=== PATIENT | male | born 1955 | race Caucasian/White ===

== ENCOUNTER → 2020-06-12 | Outpatient (CLI) | payer BC, MEDICARE | END | disposition home or self-care (01) | LOC: LABWHC1 11:13 | PROVIDERS: ATTEND Surgery | DX: Z20.828 Contact with and (suspected) exposure to other viral communicable diseases (principal) ==

== ENCOUNTER → 2020-06-20 | Day surgery (SDC) | payer BC, MEDICARE ==
[2020-06-17 08:36] VITALS: BMI 30.4
[~2020-06-20] MED LIST: LACTATED RINGERS 1,000 ML IV SCH; LIDOCAINE 1% (10MG/ML) FOR IV START INTRADERMA ONE; LIDOCAINE 1% INJ 10MG/ML (20 ML MDV) ONE; PROPOFOL 10 MG/ML 20 ML VIAL IV ONE
[2020-06-20 09:43] VITALS: RESP 16; TEMP 98.2
--- NOTE | 2020-06-20 10:36 | P.PCN ---
Date of Procedure: 06/20/20 Preoperative Diagnosis: GERD Screening Postoperative Diagnosis: Gastritis Duodenitis Diverticulosis Procedure(s) Performed: EGD with biopsy Colonoscopy Surgeon: Lenore Walden Pathology: other (Biopsies of duodenum, antrum, esophagus) Condition: stable Disposition: same day Indications for Procedure: 64-year-old male presents today for upper and lower endoscopy. He does have a chronic history of GERD and has never had an upper endoscopy. He does treat this with Nexium and states he does have some success with the medication. He states his last colonoscopy was many years ago and he is due for screening colonoscopy. He denies any recent blood in his stool or any family history of colon cancer. Risks, benefits and alternatives were provided to the patient. He did provide consent prior to attending the endoscopy suite. Operative Findings: Gastritis Duodenitis Diverticulosis Description of Procedure: The patient was brought to the endoscopy suite. He was then placed in left lateral decubitus position and adequate sedation was achieved using conscious sedation. A bite block was placed and an endoscope was placed in the oropharynx and advanced under endoscopic visualization. The scope was advanced through the esophagus into the stomach, through the gastric antrum and into the pylorus. The third portion of the duodenum was visualized. The endoscope was then slowly withdrawn. The first portion of duodenum was noted to have inflammatory changes. Biopsies were taken. The antrum was noted to have mild inflammatory changes. Biopsies were taken. The gastric body distended normally and the gastric folds appeared normal and flattened with insufflation. A retroflexed view of the fundus and GE junction revealed no significant hiatal hernia. Esophagus appeared endoscopically normal. Biopsies were taken. Excess air was removed as was withdrawn. A digital rectal exam was armed and mild internal hemorrhoids were palpated. An endoscope was then placed in the rectum and advanced to the cecum as identified by landmarks including the appendiceal orifice and the ileocecal valve. The prep was fair. The colonoscope was then slowly withdrawn, examining for any mucosal abnormalities. The cecum, ascending, transverse, descending and sigmoid colon were visualized adequately. No large masses were noted. No obvious polyps were noted. Moderate Diverticulosis was noted scattered throughout the sigmoid colon. Retroflexion was performed in the rectum and mild internal hemorrhoids were visible. Excess air was removed, the colonoscope withdrawn and the procedure terminated. The patient was then transferred to the recovery unit in stable condition. Next colonoscopy should be performed in 7-10 years.
--- NOTE | 2020-06-20 10:38 | P.GSHP ---
History of Present Illness H&P Date: 06/20/20 64-year-old male presents for upper and lower endoscopy. He does have a chronic history of GERD. He takes Nexium for this and he states that he does have success. He is last colonoscopy was many years ago. He denies any recent blood in his stool. Denies any family history of colon cancer. Denies any recent abdominal pain. - Review of Systems All systems: negative Past Medical History Past Medical History: GERD/Reflux, Hearing Disorder / Deafness Additional Past Medical History / Comment(s): LT KNEE PROB. History of Any Multi-Drug Resistant Organisms: None Reported Past Surgical History: Hernia Repair, Joint Replacement, Orthopedic Surgery Additional Past Surgical History / Comment(s): LT RING FINGER REPAIR, SKIN GRAFT. LT CTR., reji knee replacement Past Anesthesia/Blood Transfusion Reactions: No Reported Reaction Smoking Status: Current some day smoker - Past Family History Father Family Medical History: Cancer Medications and Allergies Home Medications Medication Instructions Recorded Confirmed Type Atomoxetine HCl [Strattera] 100 mg PO QAM 05/20/15 06/20/20 History Esomeprazole Magnesium [NexIUM] 40 mg PO DAILY 05/20/15 06/20/20 History Atorvastatin [Lipitor] 10 mg PO DAILY 06/17/20 06/20/20 History Multivitamins, Thera [Multivitamin 1 tab PO DAILY 06/17/20 06/20/20 History (formulary)] Allergies Allergy/AdvReac Type Severity Reaction Status Date / Time No Known Allergies Allergy Verified 06/20/20 09:19 Surgical - Exam Osteopathic Statement: *. No significant issues noted on an osteopathic structural exam other than those noted in the History and Physical/Consult. Vital Signs Temp Pulse Resp BP Pulse Ox 98.2 F 65 16 144/84 96 06/20/20 09:19 06/20/20 09:19 06/20/20 09:19 06/20/20 09:19 06/20/20 09:19 - General well nourished, no distress - ENT no hearing loss - Respiratory normal respiratory effort - Abdomen Abdomen: soft, non tender Assessment and Plan Plan: 64-year-old male with history of GERD presents for upper and lower endoscopy. Risks, benefits and alternatives were provided to the patient. He did provide consent prior to attending the endoscopy suite. Further recommendations after procedure.
[2020-06-20 10:56] VITALS: BP 166/93; PULSE 64
== END | disposition home or self-care (01) ==
LOC: ORWHC2ENDO 09:06
PROVIDERS: ATTEND Surgery
DX: Z12.11 Encounter for screening for malignant neoplasm of colon (principal); K29.80 Duodenitis without bleeding; K21.9 Gastro-esophageal reflux disease without esophagitis; K21.00 Gastro-esophageal reflux disease with esophagitis, without bleeding; K29.70 Gastritis, unspecified, without bleeding; K64.8 Other hemorrhoids; K57.30 Diverticulosis of large intestine without perforation or abscess without bleeding; H91.90 Unspecified hearing loss, unspecified ear; Z96.653 Presence of artificial knee joint, bilateral; Z98.890 Other specified postprocedural states; F17.290 Nicotine dependence, other tobacco product, uncomplicated; Z79.899 Other long term (current) drug therapy; E78.5 Hyperlipidemia, unspecified
CPT/HCPCS: 88305; 43239; G0121; J2001; J2704; 45378

== ENCOUNTER → 2022-09-21 | Outpatient (CLI) | payer MEDICARE, BC | END | disposition home or self-care (01) | LOC: LABWHC1 07:37 | PROVIDERS: ATTEND Urology | DX: R97.20 Elevated prostate specific antigen [PSA] (principal) | CPT/HCPCS: 36415; 84153 ==

== ENCOUNTER → 2023-04-06 | Outpatient (CLI) | payer MEDICARE | END | disposition home or self-care (01) | LOC: LABWHC1 09:32 | PROVIDERS: ATTEND Urology | DX: R97.20 Elevated prostate specific antigen [PSA] (principal) | CPT/HCPCS: 36415; 84153 ==

== ENCOUNTER → 2023-10-18 | Outpatient (CLI) | payer MEDICARE ==
--- NOTE | 2023-10-18 09:41 | US ---
EXAMINATION TYPE: US gallbladder DATE OF EXAM: 10/18/2023 COMPARISON: NONE CLINICAL INDICATION: Male, 68 years old with history of K81.0 CHOLECYSTITIS; bloating, but is improvi ng TECHNIQUE: Multiple sonographic images of the right upper quadrant are obtained. 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 Gallbladder: wnl Evidence for sonographic Romano's sign: no CBD: wnl Right Kidney: wnl IMPRESSION: Hepatic steatosis without evidence for acute process.
== END | disposition home or self-care (01) ==
LOC: RADUSWWP 06:59
PROVIDERS: ATTEND Family Medicine
DX: K81.0 Acute cholecystitis (principal); K76.0 Fatty (change of) liver, not elsewhere classified
CPT/HCPCS: 76705

== ENCOUNTER → 2024-12-13 | Outpatient (CLI) | payer MEDICARE ==
--- NOTE | 2024-12-13 11:22 | CA ---
Exercise Stress Test Report Name: [facility] Exam Date: 12/13/2024 10:37 Exam Location: [facility] Stress Ht (in): 67 Wt (lb): 210 BSA: 2.06 Ordering Phys: Fish Caballero DO Referring Phys: Fish Caballero DO Technologist: Artemio Bro Age: 69 Gender: M : 1955 Procedure CPT: Indications: R06.02 SOB ICD-10 Codes: Patient History: Medications: ROSUVASTATIN, ESONEPRA, TAMSULOSIN, STRATERA Meds past 24 hrs: Pretest Chest Pain: STRESS TEST Jayme Protocol Exercise Duration (min:sec): 06:[address] Depressions (mm): Angina Score: Luna Score: Resting HR (bpm): 80 Peak HR (bpm): 129 Resting BP (mmHg): 153 / 95 Peak BP (mmHg): 213 / 82 MPHR: 151 Target HR: 128 % MPHR: 85 METS: 8.6 Total Dose: Peak Dose: Atropine: Double Product: 57813 BP Response: Stress Termination: TARGET HR REACHED/MAX EXERTION Stress Symptoms: NO SYMPTOMS Stress Summary: ECG ANALYSIS Resting ECG: Normal sinus rhythm normal axis normal intervals Stress ECG: Patient exercised on Jayme protocol for 7 minutes achieving 8 metastases 85% of predicted maximal heart rate without chest pain at peak exercise there was one and half millimeter ST segment depression in inferolateral leads with frequent PVCs CONCLUSIONS About average exercise tolerance Abnormal stress test by EKG criteria Dr. Benito Fragoso MD (Electronically Signed) Final Date: 13 December 2024 11:21
== END | disposition home or self-care (01) ==
LOC: RADNMMAIN 10:05
PROVIDERS: ATTEND Family Medicine
DX: R06.02 Shortness of breath (principal); R06.00 Dyspnea, unspecified; R94.39 Abnormal result of other cardiovascular function study
CPT/HCPCS: 93017

== ENCOUNTER → 2024-12-22 | Outpatient (CLI) | payer MEDICARE ==
[2024-12-22 13:38] LABS: HCT 47.1 % (39.6-50.0); HGB 16.3 g/dL (13.0-17.0); MCH 31.8 pg (27.0-32.0); MCHC 34.6 g/dL (32.0-37.0); MCV 92.0 FL (80.0-97.0); NRBC Per 100 WBC 0 X 10*3/uL (0.00-0.01); Platelet Count 244 X 10*3/uL (140-440); RBC 5.12 X 10*6/uL (4.40-5.60); RDW 12.5 % (11.5-14.5); WBC 5.81 X 10*3/uL (4.50-10.00)
[2024-12-22 13:42] LABS: Anion Gap 9.70 mmol/L (4.00-12.00); Blood Urea Nitrogen 12.5 mg/dL (9.0-27.0); Carbon Dioxide 23.3 mmol/L (21.6-31.8); Chloride 102 mmol/L (96-109); Potassium 4.2 mmol/L (3.5-5.5); Sodium 135 mmol/L (135-145)
== END | disposition home or self-care (01) ==
LOC: LABWHC1 09:08
PROVIDERS: ATTEND Internal Medicine Interventional Cardiology
DX: Z01.812 Encounter for preprocedural laboratory examination (principal); R94.39 Abnormal result of other cardiovascular function study
CPT/HCPCS: 80051; 82565; 84520; 85027

== ENCOUNTER → 2024-12-27 | Day surgery (SDC) | payer MEDICARE ==
[2024-12-26 10:26] VITALS: BMI 32.8
[~2024-12-27] MED LIST changes: +ALPRAZolam 0.25 MG TAB PO PRN; +ASPIRIN 81 MG PO SCH; +ATORVASTATIN 10 MG TAB PO SCH; +ATROPINE SULFATE 0.1 MG/ML 10ML SYRINGE IV PRN; +CLOPIDOGREL 75 MG TAB PO SCH; -LACTATED RINGERS 1,000 ML IV SCH; -LIDOCAINE 1% (10MG/ML) FOR IV START INTRADERMA ONE; -LIDOCAINE 1% INJ 10MG/ML (20 ML MDV) ONE; +MAG HYDROX/AL HYDROX/SIMETH 30 ML CUP PO PRN; +METOPROLOL TARTRATE 25 MG TAB PO SCH; +NITROGLYCERIN SL TABS 0.4 MG TAB SUBLINGUAL PRN; -PROPOFOL 10 MG/ML 20 ML VIAL IV ONE; +RX INFO: IV CONTRAST WAS GIVEN 1 EACH MISC MISCELLANE PRN; +SODIUM CHLORIDE 0.9% 1,000 ML in EMPTY BAG 1 BAG IV SCH; +TAMSULOSIN 0.4 MG CAP.ER.24H PO SCH; +ZOLPIDEM 5 MG TAB PO PRN
[2024-12-27] MEDS: IV FLUID CONTINUATION 1,000 ML IV ONE ×3 (07:46→13:28)
[2024-12-27 07:54] VITALS: RESP 14; TEMP 97.8
[2024-12-27] MEDS: ALPRAZolam 0.5 MG TAB PO PRN (08:05)
[2024-12-27] MEDS: SODIUM CHLORIDE 0.9% 1,000 ML in EMPTY BAG 1 BAG IV SCH (08:05)
[2024-12-27] MEDS: ASPIRIN 325 MG TAB PO ONE (08:06)
[2024-12-27] MEDS: HEPARIN SODIUM,PORCINE 10,000 UNIT in SODIUM CHLORIDE 0.9% 1,000 ML IRRIGATION PRN (09:09)
[2024-12-27] MEDS: HEPARIN SODIUM,PORCINE (1 ML) 2,500 UNIT in SODIUM CHLORIDE 0.9% 250 ML IRRIGATION PRN (09:09)
[2024-12-27] MEDS: fentaNYL (PF) 50 MCG/ML 2 ML AMP IVP ONE (09:34)
[2024-12-27] MEDS: LIDOCAINE 1% INJ 10MG/ML (20 ML MDV) SQ ONE (09:37)
[2024-12-27] MEDS: VERAPAMIL SYRINGE (5 MG/10 ML) INTRAARTER ONE (09:39)
[2024-12-27] MEDS: HEPARIN SODIUM 1,000 UN/ML (10ML VL) IV ONE (09:44)
[2024-12-27] MEDS: CLOPIDOGREL 75 MG TAB PO ONE (09:52)
[2024-12-27] MEDS: IOPAMIDOL-370 100ML BTL INJ ONE ×2 (09:59→10:25)
--- NOTE | 2024-12-27 10:48 | P.CARDCATH ---
Date of Procedure: 12/27/24 Description of Procedure: Cardiac Catheterization: The patient is a 69-year-old male with history of hyperlipidemia who is scheduled to undergo prostate surgery and has been complaining of dyspnea on exertion, he had an abnormal stress test. Recommendations were made regarding cardiac catheterization, the risks and the complications were discussed with the patient who is in full understanding and agreement. Procedure Description: Patient was brought to test lab technician in fasting semi-sedated state after receiving Fentanyl and Benadryl achieiving moderate conscious sedated state. Using Xylocaine Anesthesia and modified Seldinger technique, a 6-[place] sheath was introduced in the right radial artery . Subsequently, selective coronary angiography was performed using a 5-[place] 3.5 bend Dang catheter. Multiple views of the coronary artery including hemiaxial views were obtained. The 5 [place] pigtail catheter was used to cross the aortic valve and LVEDP was calculated. PCI: After removing the catheters a 6 [place] CLS 3.5 guiding catheter was introduced into the system and after cannulating the left main a 0.014 BMW J-wire was positioned in the distal obtuse marginal branch and subsequently a [place] eye IVUS catheter was introduced and revealed the distal lumen of 4.0 mm in diameter with mild calcification. After removing the catheter a 4.0 x 15 mm Xience Skypoint stent was deployed at 14 jamari and after removing the balloon repeat IVUS imaging was performed that revealed mild under deployment in the mid segment of the stent and subsequently a 4.0 x 12 mm NC trek balloon was advanced and 1 inflation at 10 jamari was done. After the last inflation the wire was removed and images were obtained and revealed stable successful stenting. Following that, catheter and sheath were removed. Hemostasis was obtained with deployment of vascular band . There was no immediate complication. Patient was returned to room in stable condition. Of note, the patient received a total of 8000 units of intravenous heparin as well as intra-arterial verapamil. He received an oral loading dose of clopidogrel. His ACT was monitored. He had chest discomfort that resolved at the end of the procedure but no significant EKG changes. Findings: Left main: This is a large size vessel, bifurcating into LAD and left circumflex, left main has no obstructive disease. LAD: This is a large size vessel, giving rise to a large proximal diagonal branch. The LAD has mild intimal disease proximally of 20 to 20% with no high- grade stenosis Left circumflex: This is a large nondominant vessel giving rise to 3 obtuse marginal branch the first 2 are large in caliber. The proximal segment of the LAD has an 85% eccentric lesion, the rest of the vessel has no high-grade stenosis RCA: This is a large dominant vessel, bifurcating distally to PDA and PLV, the right coronary tree has mild intimal disease in the midsegment of 10 to 20% with no high-grade stenosis. Left Ventriculogram: Not performed Hemodynamics: There was no gradient across the aortic valve, LVEDP was 12-14 mmHg Conclusion: 1. 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 Mild disease in the LAD and RCA 3. Right dominance 4. Successful stenting of the proximal left circumflex with reduction of stenosis from 85% to 0% with IVUS imaging and NALLELY-3 flow Recommendations: The patient will continue on aspirin and clopidogrel, preferably for 6 months but in view of the upcoming surgery, if stable clopidogrel can be stopped for 1 week in 3 months to proceed with surgery and subsequently resume dual antiplatelet treatment. Aggressive coronary risks modification will be continued, attempting to maintain LDL below 70 mg/dL. The findings and the recommendations were discussed with the patient and the family and they were in full understanding and agreement. Duration of sedation is 45 minutes.
[2024-12-27 13:30] VITALS: BP 153/88; PULSE 60
== END | disposition home or self-care (01) ==
LOC: CATHCVL 07:21
PROVIDERS: ATTEND Internal Medicine Interventional Cardiology
DX: I25.10 Atherosclerotic heart disease of native coronary artery without angina pectoris (principal); E78.2 Mixed hyperlipidemia; Z87.891 Personal history of nicotine dependence; Z79.899 Other long term (current) drug therapy
CPT/HCPCS: 92978; 93458; 99152; 99153; C9600; C1769 ×3; C1887; C1894; C1753; C1874; C1725; J1644 ×3; J2003; J3010; Q9967